=== PATIENT | male | born 1965 | race Caucasian/White ===

== ENCOUNTER 2024-07-13 14:14 | Emergency (ER) | payer OTHER, SELFPAY ==
--- OUTSIDE RECORDS SUMMARY | 2024-07-13 14:19 | XMS_ITS | Clinical Summary ---
Author Organization [facility] Address [address] [place] [address] Phone Care Team Providers Care Vegetable Cook Name Role Phone Jacob Kirkpatrick MD Primary Care Provider Allergies No known active allergies Medications telmisartan (MICARDIS) 40 mg Oral Tab Take 40 mg by mouth daily. Active Telmisartan-Hydr ochlorothiazid (MICARDIS HCT) 80-12.5 mg Oral Tab Take by mouth. Active clonazePAM (KLONOPIN) 0.5 mg Oral Tab Take 0.5 mg by mouth 2 times daily. 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 Active levothyroxine (SYNTHROID) 25 mcg Oral tablet Take 25 mcg by mouth daily brush and broom clipper. Active diazepam (VALIUM) 5 mg Oral tablet Take 1 Tab by mouth every 4 hours as needed (vertigo). 65 Tab 0 10/09/2010 Active ondansetron (ZOFRAN) 4 mg Oral Tab Take 1 Tab by mouth every 6 hours as needed for Nausea. 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 Gender Identity Not on file Sexual Orientation Not on file Last Filed Vital Signs Vital Sign Reading Time Taken Comments Blood Pressure 132/76 10/10/2010 7:40 AM CDT Pulse 69 10/10/2010 7:40 AM CDT Temperature 37.1 C (98.8 F) 10/10/2010 7:40 AM CDT Respiratory Rate 16 10/10/2010 7:40 AM CDT Oxygen Saturation 93% 10/10/2010 7:40 AM CDT Inhaled Oxygen Concentration - - Weight 139.7 kg (308 lb) 10/08/2010 1:20 PM CDT Height 182.9 cm (6') 10/01/2010 1:56 PM CDT Body Mass Index 41.77 10/01/2010 1:56 PM CDT Plan of Treatment Health Maintenance Due Date Last Done Comments HEPATITIS B VACCINES (1 of 3 - 19+ 3-dose series) 02/16 COLORECTAL SCREENING 2010 Colorectal Cancer Screening 2010 FIT-DNA Q 3 years 2010 FIT/FOBT Q 1 year 2010 Flex Sig/CT Colonography Q 5 years 2010 DTAP/TDAP/TD VACCINES (1 - Tdap) 10/06/2010 10/06/19 11 ZOSTER VACCINE (1 of 2) 2015 INFLUENZA VACCINE (#1) 2023 Advance Directives For more information, please contact: [phone] * Full Code (Latest Code Status on File) Date Activated Date Inactivated Comments 10/08/2010 5:17 PM 10/10/2010 11:47 AM Care Teams Vegetable Cook Relationship Specialty Start Date End Date Jacob Kirkpatrick MD [address] [address] [place] [address] PCP - General Family Practice 09/05/10
[2024-07-13 14:25] VITALS: BP 151/90; PULSE 96; RESP 16; TEMP 36.8; O2SAT 96
--- NOTE | 2024-07-13 14:25 | ED.SKABFB ---
HPI - Skin/Abscess/Foreign Bdy General Chief complaint: Skin/Abscess/Foreign Body Stated complaint: rash Source: patient Mode of arrival: ambulatory Limitations: no limitations History of Present Illness HPI narrative: Patient is a 59-year-old male presenting with complaint of Atraumatic redness, swelling to his right lower extremity. Area was noted approximately 1 week ago. Reports no improvement despite use of topical clobetasol. Reports history of similar, given antibiotic, steroid, clobetasol. No recent travel. No new medications, skin contacts, hygiene products. No recent surgery or Immobilization. No dyspnea, chest pain. he has not contacted his primary care provider regarding this. No additional complaints. Related Data Home Medications ?Medication ?Instructions ?Recorded ?Confirmed ?Last Taken ?Type amlodipine 10 mg tablet mg 07/13/24 Unknown History levothyroxine 125 mcg tablet mcg 07/13/24 Unknown History telmisartan 80 mg tablet mg 07/13/24 Unknown History Allergies Allergy/AdvReac Type Severity Reaction Status Date / Time No Known Allergies Allergy Verified 07/13/24 14:32 Review of Systems Review of Systems: All systems reviewed & are unremarkable except as noted in HPI and below Exam Const: General: cooperative, no acute distress, well developed, alert, awake, Physically active, acute distress, well groomed and well nourished Nutritional Appearance: well nourished Orientation/consciousness: patient oriented x3 Limitations: no limitations HENMT: Head: normal to inspection, normocephalic and atraumatic Ears: hearing grossly normal bilaterally and external ears normal Face/Nose/Sinus: Normal external nose present and normal facial exam Face and sinus: normal facial exam Mouth: Yes Normal oral and palatal mucosa present and Yes moist mucous membranes Teeth and gingiva: dentition normal and gingiva normal Throat: posterior oropharynx normal Eyes: General: appearance normal, both eyes and all related structures Visual [place]: normal visual [place] by confrontation Alignment and Position: alignment normal and position normal Periorbital: periorbital findings normal Eyelids: eyelids normal Conjunctivae: conjunctivae normal Sclera: sclerae normal Pupils: Equal, round and reactive pupils present EOM: EOMs intact bilaterally Neck: Neck: normal visual inspection, full ROM, no lymphadenopathy, no meningeal signs, trachea midline and supple Lymphatic: no lymphadenopathy noted Chest: Chest palpation & inspection: normal inspection of the chest and normal palpation of entire chest wall Resp: Effort & Inspection: normal respiratory effort and able to speak in complete sentences Auscultation: clear to auscultation bilaterally Cardio: Rate: regular rate Rhythm: regular rhythm Skin: General skin exam: No normal color (patchy erythema noted to the ant aspect of the RLE-no lymphatic streaking) Lesions: no lesions Trauma: no lacerations or abrasions Wounds: no wounds Hair: normal Nails: normal Neuro: General: patient oriented x3, gait normal, tone normal, moves all extremities, Normal light touch and pain sensation, no meningeal signs, no focal motor deficits and CN's II-XI intact bilaterally Cranial nerves: Yes Equal, round and reactive pupils present Extrem: General: full ROM, capillary refill normal and no edema (2+RLE, 1+LLE) Psych: Appearance: grossly normal and well kempt Mental Status: mental status grossly normal Speech and movement: Normal speech and movement present Course Course Emergency Course: This dictation may have been done utilizing a voice recognition system. Attempts have been made to correct errors. However, there may be uncorrected grammatical, spelling, and recognition errors present. Level of Care: Express Care Visit Vital Signs Vital signs: Vital Signs Temperature 98.3 F 07/13/24 14:25 Pulse Rate 96 07/13/24 14:25 Respiratory Rate 16 07/13/24 14:25 Blood Pressure 151/90 H 07/13/24 14:25 Pulse Oximetry 96 07/13/24 14:25 Oxygen Delivery Room Air 07/13/24 14:25 Temperature 98.3 F 07/13/24 14:25 Pulse Rate 96 07/13/24 14:25 Respiratory Rate 16 07/13/24 14:25 Blood Pressure 151/90 H 07/13/24 14:25 Pulse Oximetry 96 07/13/24 14:25 Oxygen Delivery Room Air 07/13/24 14:25 MDM - Skin/Abscess/Foreign Bdy Differential Diagnosis Differential diagnosis: Likely abscess of skin or subcutaneous tissue, cellulitis, eczema and contact dermatitis Medical Records Attestation: I reviewed the patient's medical records. Discharge Plan Discharge Clinical Impression: Cellulitis, Rash Patient Disposition: Home Condition: Stable Instructions: Antibiotic Form Additional Instructions: GO straight to the ER should your symptoms become worse, any new symptoms develop or should they not improve within 48 hours Patient Language: Iranian Prescriptions: New doxycycline hyclate 100 mg capsule 100 mg PO DAILY 7 Days Qty: 7 0RF prednisone 20 mg tablet 20 mg PO DAILY Qty: 18 0RF Rx Instructions: Take 3 tabs x 3 days then 2 tabs x 3 days then 1 tab x 3 days No Action amlodipine 10 mg tablet levothyroxine 125 mcg tablet telmisartan 80 mg tablet Follow-up/Referrals: Manoj,Ben Gómez MD [Primary Care Provider] - 07/14/24 (call first thing in the morning) Time of Disposition: 14:43
== END 2024-07-13 14:47 | disposition home or self-care (01) ==
PROVIDERS: Emergency Provider Registered Nurse; PCP Internal Medicine
DX: L03.115 Cellulitis of right lower limb (principal); R21 Rash and other nonspecific skin eruption
CPT/HCPCS: 99203; G0463

== ENCOUNTER 2024-08-26 06:43 | Outpatient (CLI) | payer OTHER, SELFPAY ==
--- OUTSIDE RECORDS SUMMARY | 2024-08-26 06:49 | XMS_ITS | Clinical Summary ---
Author Organization [facility] Address [facility] [place] [address] Care Team Providers Care Staking Technician Name Role Phone Ben Aranda MD Primary Care Provider [phone] Tashi Talbot MD Unavailable [phone] Sailaja Abdul MD Unavailable [phone] Allergies No known active allergies Medications aspirin EC 81 MG tablet Take 1 tablet (81 mg total) by mouth daily. Active Multiple Vitamins-Mineral s (MULTIVITAMIN ADULTS) Tab Take 1 tablet by mouth daily. 04/02/19 19 Active ibuprofen 200 MG tablet Take 1 tablet (200 mg total) by mouth every 6 (six) hours as needed for Pain. Active FLUTICASONE PROPIONATE 50 MCG/ACT nasal sprayIndications :Allergic rhinitis, unspecified seasonality, unspecified trigger SPRAY 2 SPRAYS INTO EACH NOSTRIL EVERY DAY 48 mL 3 03/30/19 21 Active triamcinolone 0.1 % creamIndications :Rash, skin Apply topically 3 (three) times daily. 80 g 1 05/31/19 21 Active hydroCHLOROthiaz adryan (HYDRODIURIL) 50 MG tabletIndication s:Benign essential hypertension Take 1 tablet (50 mg total) by mouth every morning. 90 tablet 3 05/13/19 24 Active montelukast (SINGULAIR) 10 MG tabletIndication s:Allergic rhinitis, unspecified seasonality, unspecified trigger Take 1 tablet (10 mg total) by mouth nightly at bedtime. 90 tablet 3 05/13/19 24 Active Telmisartan 80 MG TabIndications:B enign essential hypertension Take 1 tablet by mouth daily. 90 tablet 06/03/19 25 Active levothyroxine (SYNTHROID) 125 MCG tabletIndication s:Hypothyroidism , unspecified type TAKE 2 TABLETS(250 MCG) BY MOUTH DAILY 180 tablet 07/05/19 25 Active amLODIPine (NORVASC) 10 MG tabletIndication s:Benign essential hypertension TAKE 1 TABLET(10 MG) BY MOUTH DAILY 90 tablet 08/09/19 25 Active amLODIPine (NORVASC) 10 MG tabletIndication s:Benign essential hypertension Take 1 tablet (10 mg total) by mouth daily. 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) 11/30/2014 Benign essential hypertension 04/20/2014 Obstructive sleep apnea 04/20/2014 Allergic rhinitis 11/10/2011 Anxiety 11/10/2011 Hypothyroidism 11/10/2011 Meniere's disease 09/04/2010 Resolved Problems Problem Noted Date Diagnosed Date Resolved Date Tendonitis 12/30/2018 05/30/2020 Finger pain, right 12/30/2018 Cellulitis of right lower extremity 05/06/2018 05/13/2023 Precordial pain 02/23/2018 05/13/2023 Encounters Date Type Department Care Team Description 08/17/2024 7:40 AM CDT Office Visit [facility] [address] [address] Ben Aranda MD Physical 08/17/2024 Travel 07/13/2024 Scan [facility] Scanned, [facility] from Last 3 Months Immunizations Immunization Administration Dates Next Due Influenza Adult (Generic) 11/30/2019(Deferred: P atient Refused) Td (Tenivac) preservative free 10/05/2010 Tdap (Adacel) 05/13/2023 Family History Medical History Relation Comments Heart Disease Father Hypertension Mother Stroke Mother Relation Status Comments Brother Alive Father (Age 75) Mother (Age 58) Sister Alive Social History Tobacco Use Types Packs/Day Years Used Date Smoking Tobacco: Never Smokeless Tobacco: Never Tobacco Cessation:Counseling Given: Not Answered Alcohol Use Standard Drinks/Week Comments Not Currently 1.7 (1 standard drink = 0.6 oz p ure alcohol) AUDIT-C Answer Date Recorded Frequency of Alcohol Consumption 2-4 times a thu04/22/2018 Average Number of Drinks 1 or 2 019 Frequency of Binge Drinking Not on file 08/2018 PHQ-2 Answer Date Recorded Patient Health Questionnaire-2 Score 0 08/17/2024 Sex and Gender Information Value Date Recorded Sex Assigned at Male 02/23/2018 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 Legal Sex Male 5:01 PM CDT Gender Identity Male 02/23/2018 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 Sexual Orientation Straight 02/23/2018 8: 18 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 Not on file Not on file Not on file Last Filed Vital Signs Vital Sign Reading Time Taken Comments Blood Pressure 138/78 08/17/2024 8:51 AM CDT Pulse 73 08/17/2024 7:44 AM CDT Temperature 37.2 C (99 F) 08/17/2024 7:44 AM CDT Respiratory Rate 20 08/17/2024 7:44 AM CDT Oxygen Saturation 95% 08/17/2024 7:44 AM CDT Inhaled Oxygen Concentration - - Weight 133.9 kg (295 lb 1.6 oz) 08/17/2024 7:44 AM CDT Height 182.9 cm (6') 08/17/2024 7:44 AM CDT Body Mass Index 40.02 08/17/2024 7:44 AM CDT Plan of Treatment Health Maintenance Due Date Last Done Comments Colorectal Cancer Screening Colonoscopy (10 Years) 09/17/2024 Postponed from (Awaiting Documentation) Annual Physical 08/17/2025 08/17/2024 COVID-19 Vaccine (2023-2 5 season) 2025 Postponed from 10/17 (Patient Refused) Pneumococcal Vaccine: 50+ Years (1 of 1 - PCV) 08/17/2025 Postponed from 02/16 (Patient Refused) Zoster Vaccines (1 of 2) 08/17/2025 Pos tponed from 2015 (Patient Refused) DTaP, Tdap and Td Vaccines ( 2 - Td or Tdap) 05/12/2033 05/13/2023, 10/05/2010 Hepatitis C Completed 05/13/2023 PHQ-2 (Physician [place]) Completed 08/17/2024 Meningococcal B Vaccine Aged Out No l onger eligible based on patient's age to complete this topic Meningococcal Vaccine Aged Out No alyson elizabeth eligible based on patient's age to complete this topic RSV Immunizations Under 20 Months Aged Out No longer eligible b ased on patient's age to complete this topic Procedures Procedure Name Priority Date/Time Associated Diagnosis Comments HEPATITIS C ANTIBODY Routine 05/13/2023 7:55 AM CDT Need for hepatitis C screening test from Last 3 Months or Most Recently Relevant to Health Maintenance Results * HEPATITIS C ANTIBODY (05/13/2023 7:55 AM CDT) HEPATITIS C AB NON-REACTI VE NON-REACT GAUTAM 05/13/2023 7:42 PM CDT [facility] Comment: ANTIBODIES TO HCV NOT DETECTED. DOES NOT EXCLUDE THE POSSIBILITY OF EXPOSURE TO HCV. 05/13/2023 7:55 AM CDT Ben Aranda MD LABORATORY Final Result [facility] [address] [place] [address], [id number] from Last 3 Months or Most Recently Relevant to Health Maintenance Additional Health Concerns Infection Onset Date Last Indicated C. difficile 09/24/2016 09/24/2016 Insurance [facility] Care Teams Staking Technician Relationship Specialty Start Date End Date Ben Aranda MD [address] [place] [address] PCP - General INTERNAL MEDICINE 02/04/18 Tashi Talbot MD [facility] [address] [place] [address] [place] Triage Nurse INTERVENTIONAL CARDIOLOGY 03/24/18 Sailaja Abdul MD [address] [place] [address] [phone] [place] [address] Referring Physician GASTROENTEROLOGY 05/24/18
--- OUTSIDE RECORDS SUMMARY | 2024-08-26 06:49 | XMS_ITS | Clinical Summary ---
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
[2024-08-26 08:32] LABS: Hematocrit 47.6 % (42.0-52.0); Hemoglobin 15.3 g/dL (14.0-18.0); Immature Granulocyte Percent A 0.4 % (0-0.5); Lymphocytes Absolute Auto 1.53 K/mm3 (0.9-3.2); Mean Corpuscular HGB Conc 32.1 g/dl (32-36); Mean Corpuscular Hemoglobin 27.6 pg (26-34); Mean Corpuscular Volume 85.8 fl (80-100); Nucleated Red Blood Cells Absolute Auto 0.000 K/mm3 (0.0-0.012); Nucleated Red Blood Cells Perc 0.0 % (0.0-0.2); Platelet Count Result 280 k/mm3 (150-375); Red Blood Count 5.55 M/mm3 (4.6-6.20); White Blood Count 7.8 K/mm3 (4.5-10.0)
[2024-08-26 08:33] LABS: Add Urine Microscopic? YES; Appearance Urine Clear (Clear); Glucose Urine UA Negative (Negative); Leukocyte Esterase Ur Negative LEU/UL (Negative); Nitrate Urine Negative (Negative); Non Pathogenic Casts 0-2; Specific Grav Ur 1.015 (1.001-1.035)
[2024-08-26 08:52] LABS: Alanine Aminotransferase 32 U/L (6-50); Albumin Level 4.3 g/dL (3.5-5.1); Alkaline Phosphatase 59 U/L (38-126); Anion Gap 9 mmol/L (4-12); Aspartate Amino Transferase 29 U/L (17-59); Bilirubin,Total 1.1 mg/dL (0.2-1.3); Blood Urea Nitrogen 21 mg/dL (9-20); Calcium 9.0 mg/dL (8.4-10.2); Carbon Dioxide 26 mmol/L (22-30); Chloride 102 mmol/L (98-107); Cholesterol 232 mg/dL (0-200); Estimated Glomerular Filt Rate > 60; Glucose 114 mg/dL (65-110); HDL Direct 50 mg/dL; Potassium 3.4 mmol/L (3.4-5.0); Sodium 137 mmol/L (137-145); Total Protein 7.6 g/dL (6.3-8.2); Triglycerides 71 mg/dL (<150)
[2024-08-26 09:09] LABS: Free T4 Free Thyroxine 1.79 ng/dL (0.78-2.19)
[2024-08-26 09:28] LABS: Prostate Specific Antigen 0.4 ng/mL (< OR = 4.0); Thyroid Stimulating Hormone 0.784 uIU/mL (0.465-4.680)
== END 2024-08-26 06:44 | disposition home or self-care (01) ==
LOC: ANHLAB 06:47
PROVIDERS: PCP Internal Medicine; Visit Provider Internal Medicine
DX: E03.9 Hypothyroidism, unspecified (principal); I10 Essential (primary) hypertension
CPT/HCPCS: 36415; 80053; 80061; 81001; 84153; 84439; 84443; 85025